=== PATIENT | male | born 1965 | race Caucasian/White ===

== ENCOUNTER 2018-04-19 15:24 | Emergency (ER) | payer MEDICAID ==
[~2018-04-19] VITALS: Ht 170.2 cm; Wt 95.7 kg
[2018-04-19 15:37] VITALS: Ht 170.2 cm; Wt 95.7 kg
[2018-04-19 17:38] LABS: BASOPHIL % 0.3 % (0-2); PLATELET COUNT 208 x10^3mcL (130-400); RED CELL DISTRIBUTION WIDTH 12.6 % (11.5-14.5)
[2018-04-19 17:46] LABS: CALCIUM 8.6 mg/dL (8.5-10.1); CARBON DIOXIDE 30.9 mmol/L (21-32); CHLORIDE SERUM 97 mmol/L (98-107); GFR1 > 60 mL/min; GLUCOSE SERUM 263 mg/dL (74-106); POTASSIUM SERUM 3.8 mmol/L (3.5-5.1); SODIUM SERUM 135 mmol/L (136-145)
[2018-04-19 17:53] LABS: ALBUMIN 3.9 g/dL (3.4-5.0); ALKALINE PHOSPHATASE 73 U/L (46-116); ALT/SGPT 29 U/L (16-63); AST/SGOT 11 U/L (15-37); BILIRUBIN TOTAL 0.32 mg/dL (0.20-1.00)
[2018-04-19 18:30] VITALS: BP 156/91
== END 2018-04-19 18:30 | disposition home or self-care (01) ==
LOC: ED 15:24
PROVIDERS: Emergency Medicine
DX: I10 Essential (primary) hypertension (principal); F41.9 Anxiety disorder, unspecified; E11.9 Type 2 diabetes mellitus without complications; E78.00 Pure hypercholesterolemia, unspecified
CPT/HCPCS: 36415; Q0092

== ENCOUNTER 2018-05-13 06:59 | Emergency (ER) | payer MEDICAID ==
[~2018-05-13] VITALS: Ht 167.6 cm; Wt 97.1 kg
[2018-05-13 07:06] VITALS: Ht 167.6 cm; Wt 97.1 kg
[2018-05-13 08:58] VITALS: BP 169/90
== END 2018-05-13 08:58 | disposition home or self-care (01) ==
LOC: ED 06:59
DX: I10 Essential (primary) hypertension (principal); E11.9 Type 2 diabetes mellitus without complications; E78.00 Pure hypercholesterolemia, unspecified; Z88.8 Allergy status to other drugs, medicaments and biological substances

== ENCOUNTER 2018-05-25 11:22 | Inpatient (IN) | payer MEDICAID ==
[~2018-05-25] VITALS: Ht 170.2 cm; Wt 94.0 kg
[2018-05-25 11:27] VITALS: Ht 170.2 cm; Wt 94.0 kg
[2018-05-25 13:27] LABS: BASOPHIL % 0.3 % (0-2); PLATELET COUNT 192 x10^3mcL (130-400)
[2018-05-25 13:39] LABS: CALCIUM 9.1 mg/dL (8.5-10.1); CARBON DIOXIDE 29.1 mmol/L (21-32); CHLORIDE SERUM 99 mmol/L (98-107); CREATININE SERUM 0.9 mg/dL (0.7-1.3); GFR1 > 60 mL/min; GLUCOSE SERUM 309 mg/dL (74-106); SODIUM SERUM 137 mmol/L (136-145)
[2018-05-25 13:43] LABS: ALBUMIN 3.8 g/dL (3.4-5.0); ALKALINE PHOSPHATASE 60 U/L (46-116); ALT/SGPT 25 U/L (16-63); AMYLASE 66 U/L (25-115); AST/SGOT 15 U/L (15-37); BILIRUBIN TOTAL 0.49 mg/dL (0.20-1.00); CHOLESTEROL 121 mg/dL (<200); HDL CHOLESTEROL 35 mg/dL (40-60); LIPASE 66 IU/L (73-393); MAGNESIUM 1.8 mg/dL (1.8-2.4); T4(THYROXINE) 8.6 ug/dL (4.7-13.3); TOTAL PROTEIN, SERUM 7.5 g/dL (6.4-8.2)
[2018-05-25 14:14] LABS: microscopic required? NO
[2018-05-25 15:16] LABS: AMPHETAMINE QUAL UR POSITIVE (See below)
[2018-05-25 15:18] LABS: UA SPECIFIC GRAVITY 1.015 (1.005-1.035); urine erythrocyte NEGATIVE (NEGATIVE)
[2018-05-25] MEDS ORDERED: METFORMIN HCL850 MG PO (17:00)
[2018-05-25] MEDS ORDERED: HUMALOG JU100 UNIT/1 SQ (17:00)
[2018-05-25] MEDS ORDERED: CARVEDILOL6.25 M1 PO (17:00)
[2018-05-25] MEDS ORDERED: NOVOLOG MIX 70/33 ML SC (17:01)
[2018-05-25] MEDS ORDERED: ZESTRIL20 MG PO (17:01)
[2018-05-25] MEDS ORDERED: CLONIDINE0.2 M1 PO (17:01)
[2018-05-25] MEDS ORDERED: NEU300 PO (17:01)
[2018-05-25 17:51] VITALS: BP 129/84
[2018-05-25 21:59] VITALS: BP 128/66
[2018-05-26] VITALS (11 sets, daily range): BP systolic 105–205; BP diastolic 67–105
[2018-05-26 06:32] LABS: CALCIUM 8.8 mg/dL (8.5-10.1); CARBON DIOXIDE 34.2 mmol/L (21-32); CHLORIDE SERUM 97 mmol/L (98-107); CREATININE SERUM 1.1 mg/dL (0.7-1.3); GFR1 > 60 mL/min; GLUCOSE SERUM 214 mg/dL (74-106); MAGNESIUM 2.1 mg/dL (1.8-2.4); PHOSPHOROUS 4.6 mg/dL (2.5-4.9); POTASSIUM SERUM 3.6 mmol/L (3.5-5.1); SODIUM SERUM 139 mmol/L (136-145)
[2018-05-26 06:39] LABS: BASOPHIL % 0.4 % (0-2); PLATELET COUNT 213 x10^3mcL (130-400); RED CELL DISTRIBUTION WIDTH 13.3 % (11.5-14.5)
[2018-05-27] VITALS (9 sets, daily range): BP systolic 124–176; BP diastolic 79–100
[2018-05-27 06:13] LABS: BASOPHIL % 0.5 % (0-2); PLATELET COUNT 210 x10^3mcL (130-400); RED CELL DISTRIBUTION WIDTH 13.7 % (11.5-14.5)
[2018-05-27 06:49] LABS: CALCIUM 8.8 mg/dL (8.5-10.1); CARBON DIOXIDE 28.7 mmol/L (21-32); CHLORIDE SERUM 101 mmol/L (98-107); GFR1 > 60 mL/min; GLUCOSE SERUM 161 mg/dL (74-106); MAGNESIUM 2.1 mg/dL (1.8-2.4); PHOSPHOROUS 5.5 mg/dL (2.5-4.9); POTASSIUM SERUM 3.6 mmol/L (3.5-5.1); SODIUM SERUM 140 mmol/L (136-145)
[2018-05-28] VITALS (7 sets, daily range): BP systolic 124–174; BP diastolic 73–88
[2018-05-28 06:37] LABS: BASOPHIL % 0.4 % (0-2); PLATELET COUNT 201 x10^3mcL (130-400); RED CELL DISTRIBUTION WIDTH 13.1 % (11.5-14.5)
[2018-05-28 06:56] LABS: CALCIUM 8.5 mg/dL (8.5-10.1); CARBON DIOXIDE 26.8 mmol/L (21-32); CHLORIDE SERUM 101 mmol/L (98-107); CREATININE SERUM 0.8 mg/dL (0.7-1.3); GFR1 > 60 mL/min; GLUCOSE SERUM 166 mg/dL (74-106); MAGNESIUM 1.9 mg/dL (1.8-2.4); PHOSPHOROUS 3.7 mg/dL (2.5-4.9); POTASSIUM SERUM 3.7 mmol/L (3.5-5.1); SODIUM SERUM 136 mmol/L (136-145)
[2018-05-29 05:32] VITALS: BP 136/72
[2018-05-29 06:08] LABS: BASOPHIL % 0.4 % (0-2); PLATELET COUNT 192 x10^3mcL (130-400); RED CELL DISTRIBUTION WIDTH 13.2 % (11.5-14.5)
[2018-05-29 06:42] LABS: CARBON DIOXIDE 28.8 mmol/L (21-32); CHLORIDE SERUM 101 mmol/L (98-107); CREATININE SERUM 0.9 mg/dL (0.7-1.3); GFR1 > 60 mL/min; GLUCOSE SERUM 222 mg/dL (74-106); MAGNESIUM 1.8 mg/dL (1.8-2.4); PHOSPHOROUS 3.4 mg/dL (2.5-4.9); POTASSIUM SERUM 3.8 mmol/L (3.5-5.1); SODIUM SERUM 137 mmol/L (136-145)
[2018-05-29 09:00] VITALS: BP 153/82
[2018-05-29 10:47] VITALS: BP 154/92
[2018-05-29 13:32] VITALS: BP 114/81
[2018-05-29] MEDS ORDERED: APR25 PO (16:59)
[2018-05-29] MEDS ORDERED: TRA100 PO (16:59)
[2018-05-29] MEDS ORDERED: NOR10 PO (17:00)
[2018-05-29] MEDS ORDERED: ZES20 PO (17:00)
[2018-05-29 17:33] VITALS: BP 149/75
[2018-05-29 18:29] VITALS: BP 149/75
== END 2018-05-29 19:00 | disposition home or self-care (01) | DRG 52 ==
LOC: ED 11:22 → DU 16:49
PROVIDERS: Emergency Medicine; ADMIT Internal Medicine
DX: I67.4 Hypertensive encephalopathy (principal); D68.69 Other thrombophilia; E11.65 Type 2 diabetes mellitus with hyperglycemia; D35.00 Benign neoplasm of unspecified adrenal gland; I16.0 Hypertensive urgency; I10 Essential (primary) hypertension; E78.00 Pure hypercholesterolemia, unspecified; F17.210 Nicotine dependence, cigarettes, uncomplicated; E66.9 Obesity, unspecified; Z68.32 Body mass index [BMI] 32.0-32.9, adult; Z91.041 Radiographic dye allergy status; Z79.4 Long term (current) use of insulin
CPT/HCPCS: 82962; 83880; 97110-GP; 97116-GP; A9577; J0360; J1815; J1885; J1940; J2405; Q0092